=== PATIENT | female | born 1980 | race Caucasian/White ===

== ENCOUNTER 2017-07-23 16:49 | Outpatient (CLI) | payer BC ==
[2013-10-21 17:39] VITALS: BP 125/91
== END 2017-07-23 16:50 ==
LOC: LABRHC 16:49
PROVIDERS: ATTEND Physician Assistant
DX: R30.0 Dysuria (principal)
CPT/HCPCS: 87086; 87186

== ENCOUNTER 2018-07-30 12:50 | Outpatient (CLI) | payer BC ==
[2013-10-21 17:39] VITALS: BP 125/91
--- NOTE | 2018-07-31 02:10 | Diagnostic Imaging Report ---
JEANNIE PADILLA (ENVIRONMENTAL SCIENCE INSTRUCTOR) - OP [facility] [address] [facility].[address] [address] Report Submission Date: Jul 30, 2018 2:09:26 PM CAPSULE MACHINE OPERATOR Patient Study Name: BERTIN AG Date: Jul 30, 2018 1:15:30 PM CAPSULE MACHINE OPERATOR Modality Type: DX Gender: F Description: KNEE 3 VIEWS : 82 Institution: [facility] Physician: JEANNIE PADILLA (CLARITA) - OP Examination: Plain film left knee History: PAIN, REDNESS, SWELLING, WARMTH X3 MONTHS Findings: 3 views of the left knee demonstrates normal cortical margins. No fracture. No dislocation. No joint effusion. No soft tissue irregularity. Impression: No acute appearing osseous abnormality Electronically signed on Jul 30, 2018 2:09:26 PM CAPSULE MACHINE OPERATOR by: Trenton Workman Examination: Plain film right knee History: PAIN, REDNESS, SWELLING, WARMTH X3 MONTHS Findings: 3 views of the right knee demonstrates normal cortical margins. No fracture. No dislocation. No joint effusion. No soft tissue irregularity. Impression: No acute appearing osseous abnormality Addendum electronically signed by Trenton Workman on July 30, 2018 2:11:20 PM [facility]
--- NOTE | 2018-07-31 02:11 | Diagnostic Imaging Report ---
JEANNIE PADILLA (FOUNDATION DIRECTOR) - OP [facility] [address] [address] Report Submission Date: Jul 30, 2018 2:10:43 PM HEMODIALYSIS TECHNICIAN Patient Study Name: BERTIN AG Date: Jul 30, 2018 1:15:30 PM HEMODIALYSIS TECHNICIAN Modality Type: DX Gender: F Description: TIBIA FIBULA 2 VIEW : 82 Institution: [facility] Physician: JEANNIE PADILLA (CLARITA) - OP Examination: Plain film tibia/fibula bilaterally History: PAIN, REDNESS, SWELLING, WARMTH X3 MONTHS Comparison exams: None available Findings: 5 views of the right and left tibia fibula demonstrates normal cortical margins. No evidence for fracture line. No soft tissue abnormality. Impression: No acute appearing osseous abnormality. Electronically signed on Jul 30, 2018 2:10:43 PM HEMODIALYSIS TECHNICIAN by: Trenton BEASLEY
== END 2018-07-30 12:53 ==
LOC: RAD 12:50
PROVIDERS: ATTEND Nurse Practitioner Family
DX: M25.561 Pain in right knee (principal); M25.562 Pain in left knee

== ENCOUNTER 2018-08-17 13:38 | Outpatient (CLI) | payer BC ==
[2013-10-21 17:39] VITALS: BP 125/91
[2018-08-17 14:20] LABS: BASOPHILS % 0.5 (0.0-1.5); EOSINOPHILS % 2.6 % (0.0-6.8); MEAN CORPUSCULAR HEMOGLOBIN 29.4 pg (28.0-34.0); MONOCYTES % 5.9 % (0.0-11.0); NEUTROPHILS # 3.6 # k/uL (1.4-7.7)
[2018-08-17 14:51] LABS: eGFR (Non-African) > 60
[2018-08-17 16:08] LABS: COLOR,URINE YELLOW (YELLOW)
[2018-08-17 16:09] LABS: APPEARANCE,URINE SLIGHTLY CLOUDY (CLEAR); OCCULT BLOOD,URINE NEGATIVE (NEGATIVE); PH URINE 7.5 (5.0 - 8.0); UROBILINOGEN URINE 0.2 Eu (0.2-1.0)
== END 2018-08-17 13:40 ==
LOC: LAB 13:38
PROVIDERS: ATTEND Nurse Practitioner Family
DX: R53.1 Weakness (principal); R53.83 Other fatigue; D64.9 Anemia, unspecified; R52 Pain, unspecified; R60.9 Edema, unspecified
CPT/HCPCS: 36415; 80053; 81002; 82306; 82550; 82553; 82607; 82746; 83540; 83550; 83735; 84134; 84446; 85025; 85045; 85651; 86140; 86704; 86706; 86803